=== PATIENT | female | born 1965 | race Caucasian/White ===

== ENCOUNTER 2024-05-02 11:26 | Inpatient (IN) | payer BC ==
[~2024-05-02] VITALS: Ht 172.7 cm; Wt 107.0 kg
[2024-05-02] MEDS: HYDROMORPHONE HCL 0.5 MG/ 0.5 ML SYRINGE IV PRN (14:23)
[2024-05-02] MEDS ORDERED: GABA-1171 PO (14:42)
[2024-05-02 14:45] LABS: BASO # 0.1 10^3/uL (0.0-0.2); BASO % 0.3 % (0.0-1.0); HEMATOCRIT 44.4 % (36.0-47.0); HEMOGLOBIN 14.8 g/dl (12.0-15.5); LYMPH # 0.8 10^3/uL (1.5-5.0); LYMPH % 5.1 % (24.0-44.0); MEAN CORPUSCULAR HEMOGLOBIN 31.4 pg (27.0-33.0); MEAN CORPUSCULAR HGB CONC 33.3 g/dl (32.0-36.5); MEAN CORPUSCULAR VOLUME 94.1 fl (80.0-96.0); MONO # 0.8 10^3/uL (0.0-0.8); MONO % 5.3 % (2.0-8.0); NEUTROPHILS # 13.4 10^3/uL (1.5-8.5); PLATELET COUNT, AUTOMATED 239 10^3/uL (150-450); RED BLOOD COUNT 4.72 10^6/uL (4.00-5.40)
[2024-05-02] MEDS ORDERED: HOME MED LIST COMPLETE! XX SCH (15:00)
[2024-05-02 15:12] LABS: INR 1.03; PARTIAL THROMBOPLASTIN TIME 23.9 SECONDS (24.8-34.2); PROTHROMBIN TIME 13.2 SECONDS (12.5-14.5)
[2024-05-02 15:13] LABS: BLOOD UREA NITROGEN 12 MG/DL (9-23); CALCIUM LEVEL 10.1 MG/DL (8.3-10.6); CARBON DIOXIDE LEVEL 21 MMOL/L (20-31); CHLORIDE LEVEL 108 MMOL/L (98-107); CREATININE FOR GFR 0.66 MG/DL (0.55-1.30); GLOMERULAR FILTRATION RATE > 60.0 (>45); GLUCOSE, FASTING 113 MG/DL (74-106); POTASSIUM SERUM 4.1 MMOL/L (3.5-5.1); SODIUM LEVEL 138 MMOL/L (136-145)
[2024-05-02 16:30] VITALS: BP 163/94; TEMP 97.2; O2SAT 95
[2024-05-02] MEDS: ONDANSETRON 4MG 2ML VIAL IV PRN (18:16)
[2024-05-02] MEDS: PANTOPRAZOLE 40MG VIAL IV SCH (18:16)
[2024-05-02] MEDS: oxyCODONE 5MG TAB PO PRN (18:17)
[2024-05-02 19:52] VITALS: BP 144/72; TEMP 97.9; O2SAT 95
[2024-05-02] MEDS: SENOKOT S TAB PO SCH (21:00)
[2024-05-02] MEDS: KETOROLAC 30 MG/ML 1ML VIAL IV SCH (21:26)
[2024-05-03] VITALS (9 sets, daily range): BP systolic 114–144; BP diastolic 64–94; TEMP 97.3–98.1; O2SAT 92–98
[2024-05-03] MEDS: diphenhydrAMINE 50MG/ML VIAL IV PRN (04:22)
[2024-05-03 05:44] LABS: BASO % 0.4 % (0.0-1.0); EOS % 0.4 % (0.0-3.0); HEMATOCRIT 38.5 % (36.0-47.0); LYMPH # 1.5 10^3/uL (1.5-5.0); LYMPH % 18.7 % (24.0-44.0); MEAN CORPUSCULAR HGB CONC 33.2 g/dl (32.0-36.5); MEAN CORPUSCULAR VOLUME 96.3 fl (80.0-96.0); MONO # 1.2 10^3/uL (0.0-0.8); MONO % 14.2 % (2.0-8.0); NEUTROPHILS # 5.4 10^3/uL (1.5-8.5); NEUTROPHILS % 66.1 % (36.0-66.0); PLATELET COUNT, AUTOMATED 204 10^3/uL (150-450); WHITE BLOOD COUNT 8.2 10^3/uL (4.0-10.0)
[2024-05-03 05:58] LABS: HEMOGLOBIN 12.8 g/dl (12.0-15.5)
[2024-05-03 06:14] LABS: BLOOD UREA NITROGEN 13 MG/DL (9-23); CALCIUM LEVEL 9.6 MG/DL (8.3-10.6); CARBON DIOXIDE LEVEL 28 MMOL/L (20-31); CHLORIDE LEVEL 106 MMOL/L (98-107); CREATININE FOR GFR 0.96 MG/DL (0.55-1.30); GLOMERULAR FILTRATION RATE > 60.0 (>45); GLUCOSE, FASTING 110 MG/DL (74-106); SODIUM LEVEL 140 MMOL/L (136-145)
[2024-05-03] MEDS ORDERED: ENOXAPARIN 40MG/0.4ML SYRINGE (J1650 PER 10MG) SC SCH (09:00)
[2024-05-03] MEDS ORDERED: fentaNYL 100 MCG/2 ML INJECTION As Ordered ONE (10:55)
[2024-05-03] MEDS ORDERED: HYDROmorphone HCL 2MG/ML 1ML VIAL As Ordered ONE (10:55)
[2024-05-03] MEDS ORDERED: ONDANSETRON 4MG 2ML VIAL As Ordered ONE (10:55)
[2024-05-03] MEDS ORDERED: LIDOCAINE 2% 100MG/5ML SDV (FOR ANES.) As Ordered ONE (10:55)
[2024-05-03] MEDS ORDERED: ROCURONIUM BROMIDE 50MG/5ML VIAL As Ordered ONE (10:55)
[2024-05-03] MEDS ORDERED: MIDAZOLAM INJ 2MG/2ML VIAL As Ordered ONE (10:55)
[2024-05-03] MEDS ORDERED: propofoL 200 MG/20 ML VIAL As Ordered ONE (10:56)
[2024-05-03] MEDS ORDERED: SUGAMMADEX SODIUM 500 MG/5 ML VIAL (BRIDION) As Ordered ONE (10:57)
[2024-05-03] MEDS ORDERED: ACETAMINOPHEN 1000MG 100ML IV BAG As Ordered ONE (10:57)
[2024-05-03] MEDS: ceFAZolin 2 GM/D5W 50 ML IV BAG As Ordered ONE (12:40)
[2024-05-03] MEDS ORDERED: hydrALAZINE 20MG/ML 1ML VIAL As Ordered ONE (13:02)
[2024-05-03] MEDS: diphenhydrAMINE 50MG/ML VIAL IV STA (15:00)
[2024-05-03] MEDS: ceFAZolin SOD 2 GM in IV 1 EA IV SCH (21:05)
[2024-05-03] MEDS ORDERED: PERCOCET 5MG/325MG TAB PO PRN (22:25)
[2024-05-03] MEDS ORDERED: NALOXONE INJ 0.4MG/1ML VIAL IV PRN (22:40)
[2024-05-03] MEDS: METHOCARBAMOL 1,000 MG/10 ML VIAL IV ONE (23:01)
[2024-05-03] MEDS: PERCOCET 5MG/325MG TAB PO ONE (23:01)
[2024-05-03] MEDS: ACETAMINOPHEN TAB 650MG DOSE (2X325MG) PO PRN (23:01)
[2024-05-04] VITALS: BP 114/70; TEMP 97.7; O2SAT 93
[2024-05-04 00:16] LABS: ALBUMIN 3.5 G/DL (3.2-5.2); BILIRUBIN,DIRECT 0.2 MG/DL (<0.4); BILIRUBIN,TOTAL 0.6 MG/DL (0.3-1.2); TOTAL PROTEIN 6.5 G/DL (5.7-8.2)
[2024-05-04 04:00] VITALS: BP 146/81; TEMP 97.2; O2SAT 96
[2024-05-04 06:25] LABS: BASO % 0.2 % (0.0-1.0); HEMATOCRIT 35.3 % (36.0-47.0); HEMOGLOBIN 11.7 g/dl (12.0-15.5); LYMPH # 1.2 10^3/uL (1.5-5.0); LYMPH % 11.6 % (24.0-44.0); MEAN CORPUSCULAR HEMOGLOBIN 32.3 pg (27.0-33.0); MEAN CORPUSCULAR HGB CONC 33.1 g/dl (32.0-36.5); MEAN CORPUSCULAR VOLUME 97.5 fl (80.0-96.0); MONO # 1.2 10^3/uL (0.0-0.8); MONO % 11.2 % (2.0-8.0); NEUTROPHILS % 76.5 % (36.0-66.0); PLATELET COUNT, AUTOMATED 192 10^3/uL (150-450); RED BLOOD COUNT 3.62 10^6/uL (4.00-5.40); WHITE BLOOD COUNT 10.5 10^3/uL (4.0-10.0)
[2024-05-04 06:55] LABS: BLOOD UREA NITROGEN 11 MG/DL (9-23); CARBON DIOXIDE LEVEL 27 MMOL/L (20-31); CHLORIDE LEVEL 108 MMOL/L (98-107); CREATININE FOR GFR 0.87 MG/DL (0.55-1.30); GLOMERULAR FILTRATION RATE > 60.0 (>45); GLUCOSE, FASTING 110 MG/DL (74-106); POTASSIUM SERUM 3.8 MMOL/L (3.5-5.1); SODIUM LEVEL 141 MMOL/L (136-145)
[2024-05-04 08:00] VITALS: BP 144/81; TEMP 98.1; O2SAT 94
[2024-05-04] MEDS: methocarbamoL 500 MG TAB PO PRN (08:44)
[2024-05-04] MEDS: PERCOCET 5MG/325MG TAB PO PRN (08:46)
[2024-05-04] MEDS: ENOXAPARIN 40MG/0.4ML SYRINGE (J1650 PER 10MG) SC SCH (08:47)
[2024-05-04 12:00] VITALS: BP 122/74; TEMP 97.7; O2SAT 91
[2024-05-04] MEDS ORDERED: BAYE325T12 PO (12:08)
[2024-05-04] MEDS ORDERED: METH-1164 PO (12:08)
[2024-05-04] MEDS ORDERED: PERCOCET PO (12:08)
[2024-05-04] MEDS ORDERED: SENN-52 PO (12:08)
== END 2024-05-04 13:32 | disposition home or self-care (01) | DRG 313 ==
LOC: M ED 11:26 → EDBD 11:26 → M ED INP 14:39 → M MSPAV 16:13
PROVIDERS: ADMIT Internal Medicine Nephrology; ATTEND Internal Medicine Nephrology
PROC: 0QS404Z Reposition Right Acetabulum with Internal Fixation Device, Open Approach (ICD-10-PCS; 2024-05-03)
PROC: 0QSG04Z Reposition Right Tibia with Internal Fixation Device, Open Approach (ICD-10-PCS; principal; 2024-05-03 12:00)
DX: S82.871A Displaced pilon fracture of right tibia, initial encounter for closed fracture (principal); G62.9 Polyneuropathy, unspecified; S82.831A Other fracture of upper and lower end of right fibula, initial encounter for closed fracture; Z79.899 Other long term (current) drug therapy; E66.9 Obesity, unspecified; Z68.36 Body mass index [BMI] 36.0-36.9, adult; Z87.891 Personal history of nicotine dependence; M85.871 Other specified disorders of bone density and structure, right ankle and foot; W01.0XXA Fall on same level from slipping, tripping and stumbling without subsequent striking against object, initial encounter; Y92.814 Boat as the place of occurrence of the external cause; Y93.H9 Activity, other involving exterior property and land maintenance, building and construction; Y99.8 Other external cause status